=== PATIENT | male | born 1965 | race Caucasian/White ===

== ENCOUNTER 2018-05-05 16:58 | Emergency (ER) | payer SELFPAY ==
[2018-05-05] MEDS: DIPHTH/TET/ACEL PERTUSS (ADULT) 0.5 ML VIAL IM* (20:13)
[2018-05-05] MEDS: IBUPROFEN 600 MG TAB PO (20:17)
== END 2018-05-05 20:35 | disposition home or self-care (01) ==
LOC: FTE 20:35
DX: S61.002A Unspecified open wound of left thumb without damage to nail, initial encounter (principal); W26.0XXA Contact with knife, initial encounter; Y92.9 Unspecified place or not applicable; Z23 Encounter for immunization
CPT/HCPCS: 29130; 90471; 90715; 99283-25

== ENCOUNTER 2018-05-07 18:10 | Emergency (ER) | payer MEDICAID | END 2018-05-07 20:09 | disposition home or self-care (01) | LOC: FTE 18:10 | DX: Z48.01 Encounter for change or removal of surgical wound dressing (principal) | CPT/HCPCS: 99281; Z7502 ==